=== PATIENT | female | born 1965 | race Caucasian/White ===

== ENCOUNTER 2022-06-09 00:50 | Day surgery (SDC) | payer BC, SELFPAY ==
--- NOTE | 2022-06-02 14:30 | PC.NURSE ---
Report to the Outpatient Waiting Room, entrance under the green pavilion located off [facility], at time 0600__ on date _06/09/22 . Planned Procedure Time: 07 . Time changes happen often and if your time is changed the preop area will call you the afternoon before. - You and your visitor will be asked to self-screen and do not enter if you have any COVID symptoms. - A mask is optional within the hospital at this time. Patients may have clear liquids (water, carbonated beverages, clear teas, apple juice) until 3 hours prior to surgery with a maximum of 20 ounces. - No food from midnight until time of surgery - -Take the following medications with a SIP of water the morning of surgery: _NO MEDS THE MORNING OF SURGERY-TAKE MEDS AT BEDTIME THE NIGHT BEFORE PER YOUR ROUTINE DO NOT STOP ANY OF YOUR OTHER PRESCRIPTION MEDICATIONS PRIOR TO SURGERY ?EXCEPT THE FOLLOWING Medications to discontinue per physician N/A Date to take last dose___N/A Please no make-up, nail lithuanian, hairspray, perfume, deodorant, or body powder the day of surgery. No jewelry (including any body piercings) or valuables the day of surgery, leave them at home. Please take a shower or bath the night before, or the morning of, surgery with an antibacterial soap. Wear comfortable, loose fitting clothing. Children are encouraged to wear pajamas. - Jewelry must be removed prior to entering the operating room. Rings and piercings that are not removed may be cut off. - The hospital will not accept responsibility for valuables. - Please leave all valuables, including medications, at home the day of surgery. If you are going home after surgery, a licensed bottom hoop driver must drive you home. - NO public transportation without another adult if you receive anesthesia. - We recommend that an adult stay with you for 24 hours following discharge. - We also recommend that you do not drive, make important decision, drink alcoholic beverages, or take any drugs that were not prescribed by your health care provider for at least 24 hours after your discharge time. Follow any additional instructions given to you from your surgeon. If you or anyone in your household have experienced Covid symptoms in the past week, please notify your surgeon or the nurse liaison at the phone number below for possible testing. Telephone instructions given to __ANH and asked if any additional questions and then verbalized understanding. Patient advised to call surgeon office or pre surgery nurse liaison [phone] if any additional questions.
[2022-06-09] VITALS (8 sets, daily range): BP systolic 107–136; BP diastolic 58–86; PULSE 52–65; RESP 12–18; TEMP 36.1–36.6; O2SAT 96–100
[2022-06-09] MEDS: LACTATED RINGERS 1,000 ML 30 ML IV CONT (06:32)
[2022-06-09] MEDS: KETOROLAC 15 MG/ML VIAL (*BKC) IV PUSH (06:37)
[2022-06-09] MEDS: ACETAMINOPHEN 500 MG TABLET 1000 MG PO (06:37)
--- NOTE | 2022-06-09 06:55 | P.PNAN_ITS ---
Anes - Initial Pre Proc Eval Procedure: Operation Date: 06/09/22 07:30 Proposed Procedures p Diagnostic Laparoscopy with Bilateral Salpingo-oophorectomy - Alize Maharaj MD Date/Time: 06/09/22 06:55 Surgeon: Alize Maharaj MD Pre Op Diagnosis: Pelvic Pain Patient Data Age: 57 Gender: F Height: 1.57 m Weight: 78.25 kg Last Vital Signs Temp 36.1 C L 06/09/22 06:08 Pulse 65 06/09/22 06:08 Resp 18 06/09/22 06:08 BP 133/86 06/09/22 06:08 Pulse Ox 98 06/09/22 06:08 O2 Del Method Room Air 06/09/22 06:08 Allergies Allergy/AdvReac Type Severity Reaction Status Date / Time Penicillins Allergy Severe Hives Verified 06/09/22 06:14 Home Medications Medication Instructions Recorded Confirmed Type baclofen 10 mg tablet 10 mg PO HS 06/02/22 06/09/22 History duloxetine 60 mg capsule,delayed 60 mg PO HS 06/02/22 06/09/22 History release gabapentin 800 mg tablet 800 mg PO BID 06/02/22 06/09/22 History Patient hx anesthesia problems: none Family hx anesthesia problems: none Results Review: All pre-operative results and documents have been reviewed as part of the pre- operative evaluation. [facility] Social History Social History Smoking status: Never smoker Alcohol intake: never Substance use: never Substance use type: marijuana Other substance usage details: EDIBLES OCCAS. FOR PAIN MGMNT Living arrangements: with family Spiritual care concerns: No Anes - Eval Final PreProcedure Day of Procedure 06/09/22 06:55 Patient weight: obese Heart: regular rate and rhythm Lungs: clear to auscultation Airway: Mallampati scale class II Neurological: alert and oriented Last oral intake: >/= 8 hours ASA classification: III Emergent: no Anesthetic plan: proceed Anesthesia type and monitoring: general ETT and standard monitoring Results Review: All pre-operative results and documents have been reviewed as part of the pre- operative evaluation. Informed Consent: The patient's anesthetic plan and its attendant risks and benefits were discussed with the patient/family/POA. Questions were solicited and answers provided to the satisfaction of the patient/family/POA.
[2022-06-09] MEDS: SCOPOLAMINE 1.5 MG PATCH TRANSDERM (07:05)
--- NOTE | 2022-06-09 07:21 | WPDHPUPDATE1 ---
History and Physical Update Update Date/Time: 06/09/22 07:21 History and Physical has been reviewed, including an updated exam of the patient. There are NO changes in the patient's condition. Risks, benefits, and alternatives have been discussed and questions answered. Patient agrees to proceed with procedure.
[2022-06-09] MEDS: ONDANSETRON INJ 4 MG/2 ML VIAL IV PUSH (08:34)
[2022-06-09] MEDS: DEXAMETHASONE SOD PHOS INJ 4 MG/ML VIAL IV PUSH (08:35)
--- NOTE | 2022-06-09 08:59 | W.PM.PROC2 ---
Procedure Note - Detailed Date of Procedure 06/09/22 Pre-op Diagnosis Pelvic Pain Post-op Diagnosis Same Procedure Performed Laparoscopic bilateral salpingo- oophorectomy Surgeon Alize Maharaj MD Anesthesia General Indications Unwanted fertility Findings absent uterus, ovaries on some tension with the scar in the pelvis from the vaginal cuff extending along the lateral pelvic sidewalls. Description of Procedure The patient was taken the operating room. She was prepped and draped in the dorsal lithotomy position after induction of general anesthesia. A 5 mm skin incision was made in the left upper quadrant of the abdominal skin. A 5 mm trocar was inserted the intra-abdominal cavity under direct visualization of the scope. Pneumoperitoneum was achieved. An 11 mm trocar was inserted in the left lower quadrant identical fashion. A 5 mm infraumbilical trocar was inserted in identical fashion as well. The bilateral fallopian tubes And ovaries were removed. This was done by using a LigaSure cautery. The infundibulopelvic ligament and mesosalpinx adjacent to the tube and ovary was cauterized transected with LigaSure. This was initiated in the area the ovary and in a stepwise fashion moved around the lateral aspect of the ovary and the tube, cauterizing and transecting Once there the fallopian tube and ovary was cauterized and transected. This was done in identical fashion on each side. The fallopian tubes and ovary were taken out through the left lower quadrant trocar site. The pneumoperitoneum was reduced. The trocars removed. The skin was closed with subcuticular 4 Monocryl and covered with Dermabond. She was taken to cover stable condition. Sponge lap and needle counts were correct x2. Estimated Blood Loss -3.0 Drains No Packing No Pathology Yes Complications No immediate complications Condition Stable Disposition PACU
[2022-06-09] MEDS: oxyCODONE HCL (*CRX) 5 MG TAB IR PO (09:31)
== END 2022-06-09 10:16 | disposition home or self-care (01) ==
PROVIDERS: PCP Physician Assistant; Visit Provider Obstetrics & Gynecology
PROC: (CPT 49320; principal; 2022-06-09 07:30)
DX: R10.2 Pelvic and perineal pain (principal); F12.90 Cannabis use, unspecified, uncomplicated; E66.9 Obesity, unspecified; Z68.31 Body mass index [BMI] 31.0-31.9, adult
CPT/HCPCS: 58661; 88305; A9270; J1100; J1885; J2250; J2270; J2405; J2704; J7120

== ENCOUNTER → 2022-08-27 13:34 | Outpatient (CLI) | payer BC, SELFPAY ==
--- NOTE | ~2022-08-27 | MM_ITS ---
EXAMINATION: MM screening scot BI w jacinto HISTORY: Screening mammogram TECHNIQUE: Craniocaudal and mediolateral oblique 3-D tomosynthesis images were obtained and synthetic 2-D images were generated. CAD analysis was submitted and interpreted. COMPARISON: No prior mammogram is available for comparison at this institution. BREAST PARENCHYMAL COMPOSITION: There are scattered areas of fibroglandular density. FINDINGS: There is no evidence of suspicious mass, calcification, or architectural distortion to sugg est malignancy in either breast. IMPRESSION: 1. No mammographic evidence of malignancy. 2. Recommend routine screening mammography in one year. BI-RADS Category 1: Negative Reviewed, dictated and finalized at location A.
== END ==
PROVIDERS: Visit Provider Nurse Practitioner
DX: Z12.31 Encounter for screening mammogram for malignant neoplasm of breast (principal)
CPT/HCPCS: 77063; 77067

== ENCOUNTER 2024-01-11 11:54 | Outpatient (CLI) | payer BC, SELFPAY ==
--- NOTE | ~2024-01-11 | MM_ITS ---
EXAMINATION: MM screening scot BI w jacinto HISTORY: Screening TECHNIQUE: Craniocaudal and mediolateral oblique 3-D tomosynthesis images were obtained and synthetic 2-D images were generated. CAD analysis was submitted and interpreted. COMPARISON: 08/27/2022 BREAST PARENCHYMAL COMPOSITION: Not dense: There are scattered areas of fibroglandular density. FINDINGS: There is no evidence of suspicious mass, calcification, or architectural distortion to sugg est malignancy in either breast. There has been no suspicious interval change. IMPRESSION: 1. No mammographic evidence of malignancy. 2. Recommend routine screening mammography in one year. BI-RADS Category 1: Negative Reviewed, dictated and finalized at location B. [facility]
== END 2024-01-11 11:55 | disposition home or self-care (01) ==
LOC: MICIMG 11:55
PROVIDERS: PCP Physician Assistant; Visit Provider Physician Assistant
DX: Z12.31 Encounter for screening mammogram for malignant neoplasm of breast (principal)
CPT/HCPCS: 77063; 77067